=== PATIENT | female | born 1955 | race Caucasian/White ===

== ENCOUNTER 2024-02-22 02:11 | Inpatient (IN) | payer MEDICARE, OTHER, SELFPAY ==
[2024-02-22] VITALS (11 sets, daily range): BP systolic 72–124; BP diastolic 45–84; PULSE 93–114; RESP 15–22; TEMP 36.6–37.1; O2SAT 94–99; BMI 26.6
--- NOTE | 2024-02-22 02:29 | XR_ITS ---
Examination: CT brain head without contrast. 2-D sagittal coronal reconstructions Date and time of exam:February 22, 2024 0356 hours INDICATIONS: Onset altered mental status today CTDI: vol (mGy):45.70 DLP: (mGycm):1005 Technique: Multiple CT axial sections of the brain have been obtained, 5 mm slice thickness. Contrast has not been administered. 2-D sagittal, coronal reconstructions have been obtained Low dose protocols were performed. One or more of the following dose reduction techniques were used; automated exposure control, adjustment of the mA and/or KV according to patient size, use of iterative reconstruction technique. Findings: No significant ventricular enlargement. 4 mm hyperdense area in the left parietal lobe image 19 Small area of hemorrhage cannot be excluded No mass effect or midline shift Basal cisterns are not remarkable. Fourth ventricle is midline. Cranial vault intact. Impression: 4 mm hyperdense area left parietal lobe image 19, differential would include small area of hemorrhage versus calcification Recommend clinical observation and short-term follow-up CT brain scan
--- NOTE | 2024-02-22 02:29 | XR_ITS ---
Examination: AP chest single view Technique one AP portable semiupright chest single view Exam date and time: February 22, 2024 at 0311 hours Comparison July 24, 2022 INDICATIONS: Shortness of breath today. FINDINGS: Mild enlargement cardiac contour Mild vascular congestion. 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
[2024-02-22 02:45] LABS: Lactate (Lactic Acid) 2.1 mMol/L (0.4-2.0)
[2024-02-22 02:46] LABS: Basophils % (Auto) 0 % (0-2.5); Eosinophils # (Auto) 1.4 Thou/mm3 (0.0-0.5); Eosinophils % (Auto) 26 % (0-10); Hematocrit 33.9 % (36.0-46.0); Hemoglobin 11.2 g/dL (12.0-16.0); Immature Granulocytes % (Auto) 6 % (0-0); Immature Granulocytes Auto 0.35 Thou/mm3 (0.00-0.00); Lymphocytes # (Auto) 0.3 Thou/mm3 (1.0-4.8); Lymphocytes % (Auto) 5 % (10-50); Mean Corpuscular Hemoglobin 27.8 pg (25.0-35.0); Mean Corpuscular Volume 84 fL (80-100); Monocytes # (Auto) 0.2 Thou/mm3 (0.0-0.8); Monocytes % (Auto) 3 % (0-12); Neutrophils # (Auto) 3.3 Thou/mm3 (1.8-7.7); Neutrophils % (Auto) 60 % (37-80); Nucleated Red Blood Cell % 0 /100 WBC (0); Platelet Count 70 Thou/mm3 (140-440); RDW Standard Deviation 46.5 fL (36.4-46.3); Red Blood Count 4.03 Miln/mm3 (4.00-5.20); White Blood Count 5.5 Thou/mm3 (3.6-11.0)
[2024-02-22 03:05] LABS: Slide Review Platelets confirmed
[2024-02-22 03:08] LABS: B-Type Natriuretic Peptide 1713 pg/mL (0-100); D-Dimer > 3820 ng/mL (<600)
[2024-02-22 03:11] LABS: Sed Rate (ESR) 94 mm/hr (0-30)
[2024-02-22] MEDS: LORazepam 2 MG/ML VIAL 0.5 MG IVP (03:27)
--- NOTE | 2024-02-22 03:30 | EDNOTE_ITS ---
ED General RME/HPI General Chief complaint: General Adult/Misc Complain Stated complaint: LOW BLOOD PRESSURE Time Seen by Provider: 02/22/24 02:19 Arrival date/time: 02/22/24 02:11 RME / HPI RME / HPI narrative: This section includes all my notes and documentations, including HPI, PE, and ED course. Ross Escalera MD HPI: 68-year-old female here to be evaluated with hypotension from her correction. I talked to her POA son ([phone]) on the phone for history. Currently, patient can't give us any history because she only moans in pain. Patient was very independent and active until spring of this year. When she had open heart surgery to fix a valve in [place] or another state. The recovery has been extremely difficult. Currently, she resides at a local correction for rehabilitation. She is improving and able to walk with assistance. Hope is to come back home and live with her son. Normally, she is alert and fully oriented. She has a DNR status. But son wants everything done to find the cause and treatment of her symptoms (including using vasopressors if needed), other than chest compressions and intubation. ROS: Can't obtain from the patient due to current clinical condition. Physical Exam: General: Alert. She appears to be in pain because she is moaning. But she has trouble telling us the location of her pain. Eyes: Conjunctivae and lids clear. EOMI. PERRL. ENT: No nasal congestion. Neck: Supple. No JVD. Heart: RRR. Lungs: No respiratory distress. Moderately decreased air movement. No significant rhonchi, wheezing, rales. Abdomen: Soft with tenderness, difficult to localize. Normal bowel sounds. No distension. No rebound or guarding. Legs: No clubbing, cyanosis, edema. Skin: Warm and dry. Neuro: Alert. Cranial Nerves II-XII grossly intact. No peripheral motor deficits. Musculoskeletal: All major joints and bones are not tender with no limited ROM. I reviewed EMS notes. I reviewed all diagnostic test results. My interpretation of the EKG is sinus rhythm with RBBB or LBBB (no BBB in 11/2023). My interpretation of the chest x-ray is increased vascular congestion (official radiology reading pending). Official CT reports pending. Blood tests and urine tests remarkable for WBC 5.5, ESR 94, D-dimer > 3820, Cr 2.4, LA 2.1, Trop 12.022, CRP 32.9, BNP 1713, procalcitonin 19.16, TSH 19.01. At this point, diagnoses include acute OK. I discussed the case with our project control manager (Dr. Burciaga). About the presentation and exam and diagnostics and treatments here. And need of further care here. Recommended discussion with [facility] for possible urgent cardiac catheterization. I discussed the case with [facility] project control manager (Dr. Duarte). About the presentation and exam and diagnostics and treatments here. And need of further care there. Urgent catheterization not indicated (because cardiac catheterization earlier this year when she had her heart valve replaced didn't indicate intervention). I discussed the case with our project control manager (Dr. Burciaga) again and our hospitalist. About the presentation and exam and diagnostics and treatments here. And need of further care here. Will accept the patient. Ross Escalera MD Related Data Home Medications ?Medication ?Instructions ?Recorded ?Confirmed amiodarone 200 mg tablet 200 mg PO QDAY 01/11/24 01/11/24 apixaban 2.5 mg tablet 2.5 mg PO BID 01/11/24 01/11/24 ascorbic acid (vitamin C) 500 mg 500 mg PO BID 01/11/24 01/11/24 tablet (Vitamin C) aspirin 81 mg tablet,delayed 81 mg PO QDAY 01/11/24 01/11/24 release bisacodyl 10 mg rectal suppository 10 mg WI QDAY PRN Constipation 01/11/24 01/11/24 (Dulcolax (bisacodyl)) ipratropium 0.5 mg-albuterol 3 mg 3 ml inhalation Q4HR PRN sob 01/11/24 01/11/24 (2.5 mg base)/3 mL nebulization soln magnesium hydroxide 400 mg/5 mL 30 ml PO Q72H 01/11/24 01/11/24 oral suspension (Milk of Magnesia) melatonin 1 mg tablet 1 mg PO HS PRN Insomnia 01/11/24 01/11/24 ondansetron 4 mg disintegrating 4 mg PO Q6H PRN Nausea And Vomiting 01/11/24 01/11/24 tablet pantoprazole 40 mg tablet,delayed 40 mg PO QDAY 01/11/24 01/11/24 release (Protonix) sennosides 8.6 mg tablet (senna) 8.6 mg PO BID 01/11/24 01/11/24 tiotropium bromide 18 mcg capsule 1 cap inhalation QDAY 01/11/24 01/11/24 with inhalation device tramadol 50 mg tablet 50 mg PO Q6H PRN Pain 01/11/24 01/11/24 Allergies Allergy/AdvReac Type Severity Reaction Status Date / Time No Known Allergies Allergy Verified 12/20/23 07:53 Course Quality Measures none Orders Category Date Time Status Admit to Inpatient Status Routine Admission 02/22/24 05:57 Active Patient Condition Routine Admission 02/22/24 05:56 Ordered Bedside COVID-19 Antigen Test NOW Care 02/22/24 02:29 Active Bedside Influenza A&B Antigen Test NOW Care 02/22/24 02:29 Completed COVID-19 Screening Questionnaire NOW Care 02/22/24 05:[address] Screening NOW Care 02/22/24 02:29 Completed Comfort Measures NEEDED Care 02/22/24 05:57 Active Decision to Admit X1 Care 02/22/24 05:24 Active EKG (ED ONLY) *Do not use* NOW Care 02/22/24 02:29 Completed Notify provider NEEDED Care 02/22/24 05:56 Active Notify provider NOW Care 02/22/24 05:28 Active Oral Care As Needed NEEDED Care 02/22/24 05:57 Active Saline [Insert IV] NOW Care 02/22/24 02:28 Active Straight [In and Out Catheter] X1 Care 02/22/24 02:28 Active Consult to Cardiology Stat Cons 02/22/24 05:[address] abdomen pelvis w con Stat Exams 02/22/24 02:[address] angio chest Stat Exams 02/22/24 02:[address] chest abdomen pelvis wo Stat Exams 02/22/24 03:[address] head/brain wo con Stat Exams 02/22/24 02:29 Taken EKG (ED Only) Stat Exams 02/22/24 02:29 Stop Req XR chest 1V portable Stat Exams 02/22/24 02:29 Taken ABG [Arterial Blood Gas] Stat Lab 02/22/24 05:30 Ordered Amylase Stat Lab 02/22/24 02:36 Completed BNP [B-Type Natriuretic Peptide] Stat Lab 02/22/24 02:36 Completed Blood Culture (Lab) Stat Lab 02/22/24 02:41 Received CBC Stat Lab 02/22/24 02:36 Completed CMP [Comprehensive Metabolic Panel] Stat Lab 02/22/24 02:36 Completed CRP [C-Reactive Protein] Stat Lab 02/22/24 02:36 Completed D-Dimer Stat Lab 02/22/24 02:36 Completed ESR [Sed Rate (ESR)] Stat Lab 02/22/24 02:36 Completed Lactate (Lactic Acid) Stat Lab 02/22/24 02:36 Completed Lactic Acid, 3 HR Stat Lab 02/22/24 05:44 Ordered Lipase Stat Lab 02/22/24 02:36 Completed Magnesium Stat Lab 02/22/24 02:36 Completed PT [Prothrombin Time with INR] Stat Lab 02/22/24 05:26 Ordered PTT [Partial Thromboplastin Time] Stat Lab 02/22/24 05:26 Ordered Procalcitonin Stat Lab 02/22/24 02:36 Completed RSV [Respiratory Syncytial Virus Ag] Stat Lab 02/22/24 02:31 Ordered TSH [Thyroid Stimulating Hormone] Stat Lab 02/22/24 02:36 Completed Troponin I Stat Lab 02/22/24 02:36 Completed Troponin I Stat Lab 02/22/24 05:08 Completed UA [Urinalysis] Stat Lab 02/22/24 02:31 Ordered Urine Culture Stat Lab 02/22/24 02:31 Ordered Aspirin Supp Med 02/22/24 04:30 Discontinued 300 mg WI X1 ONE Heparin Inj Med 02/22/24 05:26 Discontinued 4,000 unit IV X1 ONE Heparin/D5w 25K 250 ML Ivpb [Heparin in D5w Ivpb] Med 02/22/24 05:30 Ordered 25,000 unit in 250 ml IV 12 units/kg/hr LORazepam [Ativan Inj] Med 02/22/24 03:22 Discontinued 0.5 mg IVP X1 ONE LORazepam [Ativan Inj] Med 02/22/24 05:57 Active 1 mg IVP Q6HR PRN Morphine IV Drip 100mg/100ml [Morphine Sulfate IV Drip Med 02/22/24 05:57 Active 100mg/100ml] 100 ml IV 3 mg/hr Morphine Inj Med 02/22/24 05:57 Active 2 mg IVP Q30M PRN Morphine Inj Med 02/22/24 05:57 Discontinued 2 mg IVP X1 ONE Morphine Inj Med 02/22/24 03:39 Discontinued 4 mg IVP X1 ONE Norepinephrine/NS 16mg/250ml [Levophed in NS 16mg/250ml Med 02/22/24 02:25 Discontinued ] 16 mg in 250 ml IV 0.05 mcg/kg/min Ondansetron Odt [Zofran Odt] Med 02/22/24 06:00 Ordered 4 mg PO Q6HR Scopolamine [Transderm-Scop Patch] Med 02/22/24 06:00 Ordered 1 mg TOP Q3D Code Status Routine Oth 02/22/24 05:56 Ordered Oxygen Delivery PRN RT 02/22/24 05:57 Active Vital Signs Vital signs: Vital Signs Temperature 98.0 F 02/22/24 02:24 Pulse Rate 96 02/22/24 02:24 Respiratory Rate 18 02/22/24 02:24 Blood Pressure 76/60 L 02/22/24 02:24 Pulse Oximetry (%) 96 02/22/24 02:24 Oxygen Delivery Method Nasal Cannula 02/22/24 02:24 Oxygen Flow Rate 3 02/22/24 02:24 [facility] Patient data External records reviewed:: [facility] previous records, EMS form and Long-Term records Clinical information provided by:: patient, EMS and family Social determinants that could affect healthcare access:: none Patient has the following chronic illnesses:: See chart How is presenting disease/condition affected by chronic disease/condition?: e xacerbated by Evaluation data The following diagnostics were reviewed and interpreted by me:: lab results, radiology exam(s) and EKG tracing(s) (My interpretation of the EKG is: Sinus tachycardia (107 bpm) with nonspecific ST-T changes. Ross Escalera MD) Lab and/or radiology exams considered but not ordered:: None Interpretation Summary: Acute OK Medications Medications considered but not ordered:: None Medication administrations:: Medication Administration History Heparin Sodium/Dextrose (Heparin In D5w Ivpb) 25,000 unit in 250 mls @ 8.709 mls/hr IV .Q24H [facility]; Protocol Stop: 03/07/24 05:29 Morphine Sulfate (Morphine Sulfate Iv Drip 100mg/100ml) 100 mls @ 3 mls/hr IV .Q24H PRN; Protocol PRN Reason: PAIN (COMFORT CARE) Stop: 02/27/24 05:56 Lorazepam (Lorazepam 2 Mg/Ml Vial) 1 mg IVP Q6HR PRN PRN Reason: ANXIETY Stop: 02/27/24 05:56 Morphine Sulfate (Morphine Sulf Inj 10 Mg/Ml Vial) 2 mg IVP Q30M PRN PRN Reason: PAIN Stop: 02/27/24 05:56 Ondansetron HCl (Ondansetron Odt 4 Mg Tabrap) 4 mg PO Q6HR [facility] Stop: 03/23/24 05:59 Scopolamine (Scopolamine 1 Mg Tdsy) 1 mg TOP Q3D VAIBHAV Stop: 03/23/24 05:59 Discontinued Medications Aspirin (Aspirin 300 Mg Supp) 300 mg WI X1 ONE Stop: 02/22/24 04:31 Last Admin: 02/22/24 04:36 Dose: 300 mg Documented By: KG Heparin Sodium (Porcine) (Heparin Sod Inj 5000 Unit/Ml Vial 10 Ml) 4,000 unit IV X1 ONE Stop: 02/22/24 05:27 Norepinephrine Bitartrate (Levophed In Ns 16mg/250ml) 16 mg in 250 mls @ 3.402 mls/hr IV .Q24H PRN; Protocol PRN Reason: PER protocol Stop: 03/23/24 02:24 Last Titration: 02/22/24 06:00 Dose: 0 mcg/kg/min, 0 mls/hr Documented By: Titration: 02/22/24 05:57 Dose: 0.13 mcg/kg/min, 8.845 mls/hr Documented By: Titration: 02/22/24 05:52 Dose: 0.15 mcg/kg/min, 10.206 mls/hr Documented By: Titration: 02/22/24 05:47 Dose: 0.17 mcg/kg/min, 11.567 mls/hr Documented By: Titration: 02/22/24 05:42 Dose: 0.19 mcg/kg/min, 12.927 mls/hr Documented By: Titration: 02/22/24 05:38 Dose: 0.17 mcg/kg/min, 11.567 mls/hr Documented By: Titration: 02/22/24 05:33 Dose: 0.15 mcg/kg/min, 10.206 mls/hr Documented By: Titration: 02/22/24 05:28 Dose: 0.13 mcg/kg/min, 8.845 mls/hr Documented By: Titration: 02/22/24 05:23 Dose: 0.11 mcg/kg/min, 7.484 mls/hr Documented By: Titration: 02/22/24 05:18 Dose: 0.11 mcg/kg/min, 7.484 mls/hr Documented By: Titration: 02/22/24 05:13 Dose: 0.11 mcg/kg/min, 7.484 mls/hr Documented By: Titration: 02/22/24 05:08 Dose: 0.13 mcg/kg/min, 8.845 mls/hr Documented By: Titration: 02/22/24 05:03 Dose: 0.13 mcg/kg/min, 8.845 mls/hr Documented By: Titration: 02/22/24 04:58 Dose: 0.13 mcg/kg/min, 8.845 mls/hr Documented By: Titration: 02/22/24 04:53 Dose: 0.13 mcg/kg/min, 8.845 mls/hr Documented By: Titration: 02/22/24 04:48 Dose: 0.13 mcg/kg/min, 8.845 mls/hr Documented By: Titration: 02/22/24 04:43 Dose: 0.11 mcg/kg/min, 7.484 mls/hr Documented By: Titration: 02/22/24 04:38 Dose: 0.11 mcg/kg/min, 7.484 mls/hr Documented By: Titration: 02/22/24 04:33 Dose: 0.11 mcg/kg/min, 7.484 mls/hr Documented By: Titration: 02/22/24 04:28 Dose: 0.09 mcg/kg/min, 6.124 mls/hr Documented By: Titration: 02/22/24 04:23 Dose: 0.07 mcg/kg/min, 4.763 mls/hr Documented By: Admin: 02/22/24 04:18 Dose: 0.05 mcg/kg/min, 3.402 mls/hr Documented By: KG Lorazepam (Lorazepam 2 Mg/Ml Vial) 0.5 mg IVP X1 ONE Stop: 02/22/24 03:23 Last Admin: 02/22/24 03:27 Dose: 0.5 mg Documented By: KG Morphine Sulfate (Morphine Sulf Inj 10 Mg/Ml Vial) 4 mg IVP X1 ONE Stop: 02/22/24 03:40 Last Admin: 02/22/24 04:18 Dose: 4 mg Documented By: KG Morphine Sulfate (Morphine Sulf Inj 10 Mg/Ml Vial) 2 mg IVP X1 ONE Stop: 02/22/24 05:58 See chart Consultations Consultation(s) initiated? (list below): Yes Consultation #1 (Physician, Specialty, Details): Cardiology (Dr. Burciaga) Diagnosis Differential Diagnosis ED Complaint MDM: OK, PE, CHF, UTI, pneumonia, sepsis, CVA Most likely diagnosis given after review of the tests above:: Acute OK Admission Indicated Admission indicated?: indicated Explain why admission is indicated or not indicated:: Acute OK Admission Request Was there a request for admission?: Yes Admission Attestation Admission request attestation: Discussed case with Hospitalist service regarding admission. Discussed patients ED course, exam findings, labs, and radiology results. The Hospitalist [agrees,declines] to accept the patient for admission. Disposition Plan Disposition Plan: Admit Medical Decision Making Differential Diagnosis Differential Diagnosis: OK, PE, CHF, UTI, pneumonia, sepsis, CVA Lab Data 02/22/24 02:36 02/22/24 02:36 Labs: Lab Results 02/22/24 02/22/24 Range/Units 02:36 05:08 WBC 5.5 (3.6-11.0) Thou/mm3 RBC 4.03 (4.00-5.20) Miln/mm3 Hgb 11.2 L (12.0-16.0) g/dL Hct 33.9 L (36.0-46.0) % MCV 84 (80-100) fL MCH 27.8 (25.0-35.0) pg MCHC 33.0 (31.0-37.0) g/dl RDW Std Deviation 46.5 H (36.4-46.3) fL Plt Count 70 L (140-440) Thou/mm3 Neut % (Auto) 60 (37-80) % Lymph % (Auto) 5 L (10-50) % Davie % (Auto) 3 (0-12) % Eos % (Auto) 26 H (0-10) % Baso % (Auto) 0 (0-2.5) % Neut # (Auto) 3.3 (1.8-7.7) Thou/mm3 Lymph # (Auto) 0.3 L (1.0-4.8) Thou/mm3 Davie # (Auto) 0.2 (0.0-0.8) Thou/mm3 Eos # (Auto) 1.4 H (0.0-0.5) Thou/mm3 Baso # (Auto) 0.0 (0.0-0.2) Thou/mm3 Immature Gran # (Auto) 0.35 H (0.00-0.00) Thou/mm3 Absolute Nucleated RBC 0.00 (0.00-0.00) Thou/mm3 Immature Gran % 6 H (0-0) % Nucleated RBC % 0 (0) /100 WBC ESR 94 H (0-30) mm/hr D-Dimer > 3820 H (<600) ng/mL Sodium 133 L (136-145) mMol/L Potassium 4.7 (3.4-5.1) mMol/L Chloride 102 (98-107) mMol/L Carbon Dioxide 19.8 L (20.0-31.0) mMol/L Anion Gap 11 (7-16) BUN 67 H (9-23) mg/dL Creatinine 2.4 H D (0.6-1.3) mg/dL Estim Creat Clear Calc 22.4 L (>60) mL/min eGFR 21 L (60 - ) See Note BUN/Creatinine Ratio 28 H (12-20) Ratio Glucose 111 H (74-106) mg/dL Calculated Osmolality 286 (275-295) Lactic Acid 2.1 H (0.4-2.0) mMol/L Calcium 8.6 (8.3-10.6) mg/dL Corrected Calcium 9.2 (8.5-10.1) mg/dL Magnesium 1.6 (1.6-2.6) mg/dL Total Bilirubin 0.6 (0.3-1.2) mg/dL AST 84 H (0-34) U/L ALT 49 (10-49) U/L Alkaline Phosphatase 114 (46-116) U/L Troponin I 12.022 H* 17.757 H* D (0.0-0.045) ng/mL C-Reactive Prot, Quant 32.9 H (0.0-0.9) mg/dL B-Natriuretic Peptide 1713 H* (0-100) pg/mL Total Protein 5.1 L (5.7-8.2) gm/dL Albumin 3.3 L (3.4-4.8) gm/dL Globulin 1.8 L (2.3-3.5) gm/dL Albumin/Globulin Ratio 1.8 (1.2-2.2) Amylase 25 L (30-118) U/L Lipase 16 (12-53) U/L Procalcitonin 19.16 H (0.0-0.49) ng/ml TSH 19.01 H (0.55-4.78) uIU/mL Misc Test Result Platelets confirmed Critical Care Time Critical Care Time Critical Care Time: Yes Total Critical Care Time (min.): 62 Attestation: Due to a high probability of clinically significant, life threatening deterioration, the patient required my highest level of preparedness to intervene emergently and I personally spent this critical care time directly and personally managing the patient. This critical care time included obtaining a history; examining the patient; ordering and review of studies; arranging urgent treatment with development of a management plan; evaluation of patient's response to treatment; frequent reassessment; and discussions with family and other providers. It was exclusive of separately billable procedures and treating other patients and teaching time. Ross Escalera MD Discharge Plan Plan Patient Disposition: Admit Acute Care w/in Hospital Prescriptions/Referrals Prescriptions/Med Rec: No Action amiodarone 200 mg Tablet 200 mg PO QDAY aspirin 81 mg Tablet,Delayed Release (Dr/Ec) 81 mg PO QDAY Hold Instructions: Resume on 01/14/24. bisacodyl [Dulcolax (bisacodyl)] 10 mg Suppository 10 mg WI QDAY PRN (Reason: Constipation) apixaban 2.5 mg Tablet 2.5 mg PO BID Hold Instructions: Resume on 01/14/24. sennosides [senna] 8.6 mg Tablet 8.6 mg PO BID ipratropium-albuterol 0.5 mg-3 mg(2.5 mg base)/3 mL Solution For Nebulization 3 ml INHALATION Q4HR PRN (Reason: sob) tramadol 50 mg Tablet 50 mg PO Q6H PRN (Reason: Pain) magnesium hydroxide [Milk of Magnesia] 400 mg/5 mL Suspension 30 ml PO Q72H ascorbic acid (vitamin C) [Vitamin C] 500 mg Tablet 500 mg PO BID pantoprazole [Protonix] 40 mg Tablet,Delayed Release (Dr/Ec) 40 mg PO QDAY ondansetron 4 mg Tablet,Disintegrating 4 mg PO Q6H PRN (Reason: Nausea And Vomiting) melatonin 1 mg Tablet 1 mg PO HS PRN (Reason: Insomnia) tiotropium bromide 18 mcg Capsule, W/Inhalation Device 1 cap INHALATION QDAY Rx Instructions: puncture 1 cap using device; one dose = 2 inhalations Referrals: Shun Thomson MD [Primary Care Provider] - In 1 week Problem List Clinical Impression: Acute OK, Hypotension, Elevated brain natriuretic peptide (BNP) level, Elevated d-dimer, Elevated TSH Patient/Caregiver Discharge Instructions Print Language: Russian Stand Alone Forms: [facility] Award Info., Patient Portal Info Letter
[2024-02-22 03:32] LABS: Alanine Aminotransferase 49 U/L (10-49); Albumin, Serum 3.3 gm/dL (3.4-4.8); Albumin/Globulin Ratio 1.8 (1.2-2.2); Alkaline Phosphatase 114 U/L (46-116); Amylase 25 U/L (30-118); Anion Gap 11 (7-16); Aspartate Amino Transferase 84 U/L (0-34); BUN/Creatinine Ratio 28 Ratio (12-20); Bilirubin,Total 0.6 mg/dL (0.3-1.2); Blood Urea Nitrogen 67 mg/dL (9-23); C-Reactive Protein 32.9 mg/dL (0.0-0.9); Calcium 8.6 mg/dL (8.3-10.6); Calcium (Corrected) 9.2 mg/dL (8.5-10.1); Carbon Dioxide 19.8 mMol/L (20.0-31.0); Chloride 102 mMol/L (98-107); Creatinine (Component) 2.4 mg/dL (0.6-1.3); Estimated Creatinine Clearance 22.4 mL/min (>60); Globulin 1.8 gm/dL (2.3-3.5); Glucose 111 mg/dL (74-106); Lipase 16 U/L (12-53); Magnesium 1.6 mg/dL (1.6-2.6); Osmolality,Calculated 286 (275-295); Potassium 4.7 mMol/L (3.4-5.1); Procalcitonin 19.16 ng/ml (0.0-0.49); Sodium 133 mMol/L (136-145); Thyroid Stimulating Hormone 19.01 uIU/mL (0.55-4.78); Total Protein 5.1 gm/dL (5.7-8.2); eGFR 21 See Note
[2024-02-22 03:35] LABS: Troponin I 12.022 ng/mL (0.0-0.045)
--- NOTE | 2024-02-22 03:38 | PC.NURSE ---
Ki from lab called with a high troponin of 12.0, Dr. Escalera notified
--- NOTE | 2024-02-22 03:43 | XR_ITS ---
Examination: CT chest, without intravenous contrast. CT abdomen, without intravenous contrast. CT pelvis, without intravenous contrast. 2-D sagittal and coronal reconstructions. 3-D reconstructions. Date and time of exam:February 22, 2024 at 0358 hrs. Indications: Hypertension shortness of breath chest and abdominal pain today CTDI vol (mgy) 16.41 DLP (MGycm)1159 Technique: Multiple CT images, 3.0 mm slice thickness, obtained chest, abdomen, pelvis, with the high-resolution 64 slice scanner.. Sagittal and coronal 2-D reconstructions are obtained. 3-D reconstructions Low dose protocols were performed. One or more of the following dose reduction techniques were used; automated exposure control, adjustment of the mA and/or KV according to patient size, use of iterative reconstruction technique. Findings: No thoracic aortic aneurysm dilatation Pulmonary artery segments are not enlarged No paratracheal tracheobronchial or bronchopulmonary adenopathy Mild enlargement cardiac contour Moderate vascular congestion with pneumonia left base and small left pleural effusion Mild pneumonia right base and small pleural effusion No focal liver or splenic lesions Patient motion obscures detail of the gallbladder No hydronephrosis No pancreatic mass Aorta normal size Colonic diverticulosis Atrophic uterus Moderate stool in the rectum Urinary bladder contracted around a Ascencio catheter Advanced disc narrowing L5-S1 Impression: Bibasilar pneumonia Gallbladder visualization is nondiagnostic, recommend gallbladder sonography follow-up
--- NOTE | 2024-02-22 04:00 | PC.NURSE ---
Pt is more lethargic and less responsive than she was at time of arrival, provider informed.
[2024-02-22] MEDS: Norepinephrine/NS 16mg/250ml 16 MG/250 ML BAG 3.402 MG IV (04:18)
[2024-02-22] MEDS: MORPHINE SULF INJ 10 MG/ML VIAL 4 MG IVP (04:18)
[2024-02-22] MEDS: ASPIRIN 300 MG SUPP PR (04:36)
--- NOTE | 2024-02-22 04:57 | PRELIM_ITS ---
CT scan of the head without intravenous contrast (axial sections with sagittal and coronal reformats) February 22, 2024 0356 hours Clinical history: AMS Comparison: No prior study is available for sha will. Findings:There is no evidence of intracranial hemorrhage, mass effect or midline shift. There are periventricular white matter hypodensities, compatible with chronic small vessel ischemia. There is mild volume loss. The calvarium is unremarkable. There is a small retention cyst or polyp in the l eft maxillary sinus. The mastoid air cells and the visualized paranasal sinuses are clear.Impression: No evidence of intracranial hemorrhage, mass effect or midline shift.Periventricular chronic small ve ssel ischemia and volume loss. Report Electronically Signed By: Kathy Nieto 02/22/2024 4:56:32 AM [ES T]
--- NOTE | 2024-02-22 05:04 | PC.NURSE ---
[id number] [facility] contacted pt pkt sent. [phone] SR KI, SPEAKING WITH [facility] PT DECLINED AT THIS TIME.
[2024-02-22 05:31] LABS: Troponin I 17.757 ng/mL (0.0-0.045)
--- NOTE | 2024-02-22 05:32 | PRELIM_ITS ---
CT scan of the chest, abdomen and pelvis without intravenous contrast (axial sections with sagittal a nd coronal reformats) February 22, 2024 0358 hours Clinical History: AMS HYPOTENSION SOB ABD PAIN Com parison: No prior study is available for comparison. Findings: Bibasilar atelectasis is seen. There i s mild cardiomegaly. There is no pleural effusion or pneumothorax. The aorta is unremarkable on this noncontrast study. No evidence of mediastinal mass or lymphadenopathy. There is no pericardial effus ion.A large hiatal hernia is present. Nonspecific perinephric fat stranding is noted bilaterally. Th ere is a nonobstructing left renal calculus, measuring 2mm. The liver, gallbladder, spleen, pancreas and adrenals are unremarkable on this noncontrast study.No evidence of bowel obstruction. The append ix is within normal limits (axial images 198-204). A small fat-containing umbilical hernia is present . The urinary bladder is unremarkable. A Ascencio catheter is seen in the urinary bladder. There is no f ree fluid or free air.Median sternotomy wires are identified. Degenerative changes are identified in the spine. Impression:No evidence of acute intrathoracic, intraabdominal or pelvic pathology on this noncontrast study. Report Electronically Signed By: Kathy Nieto 02/22/2024 5:31:55 AM [EST]
--- NOTE | 2024-02-22 05:42 | PC.NURSE ---
Dr. Stewart at the bedside, speaking on phone with pt's son Darnell.
[2024-02-22 05:44] LABS: Reflex Lactate? Y
--- NOTE | 2024-02-22 05:45 | PC.NURSE ---
Pt's son Darnell would like pt to be on comfort measures, he confirmed this with both myself and Dr. Paul via phone. Dr. Stewart to place orders.
--- NOTE | 2024-02-22 06:00 | ESHP_ITS ---
Documentation for date of: 02/22/24 HPI History of Present Illness History of present illness: 68-year-old female with an extensive past medical history of atrial fibrillation with RVR, COPD, GERD history of infective endocarditis with unknown valve replacement x 2. Patient presented today to the emergency department due to body aches including chest pain. I cannot get much history after that based on the patient's current mental status. Her last valve replacement on July 2023 in [place]. Patient spent several weeks in the cardiac ICU due to multiple organ failure even requiring dialysis. Eventually the patient was transferred to [place] for rehab center and lastly upon son's request the patient was transferred to a chcf facility here in [facility]. Most of the history provided was given by the son Darnell. Also patient was here yesterday with symptoms of bodyaches and had a evidence of ERIC. Patient was sent home with analgesia and hydration. At that time the patient signed a DNR in which she did not want any aggressive management stating to her son that she did not want any chest compressions or a endotracheal tube or any aggressive procedures done to her. In the ED patient is hypotensive with a last blood pressure of 73/45 with a MAP of 49 requiring Levophed. Patient mentation is not at baseline she is AO x 3, patient is very somnolent only responsive to painful stimuli. I called patient's son Mr. Patrick. I had a conversation regarding possible transferring the patient to [facility] however [facility] declined at that time for the transfer. Patient's son was explained her mother's condition requiring pressors and possibly the need of a cardiac catheterization. Based on the conversation that she had with her son. The patient did not want any aggressive management treatments or procedures. The son is aware of the patient's critical and poor prognosis. Several options were provided to the patient's son. Based on patient's extensive past medical history and current status of DNR the son agreed for comfort measures at this time to keep her mom comfortable with no additional procedures or treatments. Nurse at bedside was witnessed to discomfort sedation and spoke with the son as well confirming that he would like her mother to be on comfort measures. Review of Systems Review of Systems ROS Unobtainable: unobtainable due to mental status Exam Vital Signs Temp Pulse Resp BP Pulse Ox O2 Del Method O2 Flow Rate 98.0 F 93 20 73/45 L 99 Nasal Cannula 3 02/22/24 02:24 02/22/24 04:18 02/22/24 03:28 02/22/24 04:18 02/22/24 03:28 02/22/24 03:28 02/22/24 03:28 Narrative Exam Constitutional: Alert and oriented x 0, arousable only to painful stimuli, very somnolent HEENT: NC/AT, PERRLA, oral mucosa moist, neck supple CVS: RRR, S1-S2 present, no murmurs RESP: CTAB GI: non distended, non tender to palpation, NBS MSK: full ROM, no peripheral edema, peripheral pulses present Skin: warm and dry, no rashes Neuro: chair post machine operator II-XII grossly intact. Results: Labs 02/22/24 02:36 02/22/24 02:36 Labs: Short CBC 02/22/24 Range/Units 02:36 WBC 5.5 (3.6-11.0) Thou/mm3 Hgb 11.2 L (12.0-16.0) g/dL Hct 33.9 L (36.0-46.0) % Plt Count 70 L (140-440) Thou/mm3 BMP 02/22/24 02:36 Sodium 133 L Potassium 4.7 Chloride 102 Carbon Dioxide 19.8 L BUN 67 H Creatinine 2.4 H D Glucose 111 H Calcium 8.6 Cardiac Enzymes 02/22/24 02/22/24 Range/Units 02:36 05:08 Troponin I 12.022 H* 17.757 H* D (0.0-0.045) ng/mL Liver Function 02/22/24 Range/Units 02:36 Total Bilirubin 0.6 (0.3-1.2) mg/dL AST 84 H (0-34) U/L ALT 49 (10-49) U/L Alkaline Phosphatase 114 (46-116) U/L Albumin 3.3 L (3.4-4.8) gm/dL Quality Measures Quality Measures comfort care/end of life Advance care planning discussed with:: patient and significant other Medications Home Medications and Allergies Home Medications ?Medication ?Instructions ?Recorded ?Confirmed ?Type amiodarone 200 mg tablet 200 mg PO QDAY 01/11/24 01/11/24 History apixaban 2.5 mg tablet 2.5 mg PO BID 01/11/24 01/11/24 History ascorbic acid (vitamin C) 500 mg 500 mg PO BID 01/11/24 01/11/24 History tablet (Vitamin C) aspirin 81 mg tablet,delayed 81 mg PO QDAY 01/11/24 01/11/24 History release bisacodyl 10 mg rectal suppository 10 mg ID QDAY PRN Constipation 01/11/24 01/11/24 History (Dulcolax (bisacodyl)) ipratropium 0.5 mg-albuterol 3 mg 3 ml inhalation Q4HR PRN sob 01/11/24 01/11/24 History (2.5 mg base)/3 mL nebulization soln magnesium hydroxide 400 mg/5 mL 30 ml PO Q72H 01/11/24 01/11/24 History oral suspension (Milk of Magnesia) melatonin 1 mg tablet 1 mg PO HS PRN Insomnia 01/11/24 01/11/24 History ondansetron 4 mg disintegrating 4 mg PO Q6H PRN Nausea And Vomiting 01/11/24 01/11/24 History tablet pantoprazole 40 mg tablet,delayed 40 mg PO QDAY 01/11/24 01/11/24 History release (Protonix) sennosides 8.6 mg tablet (senna) 8.6 mg PO BID 01/11/24 01/11/24 History tiotropium bromide 18 mcg capsule 1 cap inhalation QDAY 01/11/24 01/11/24 History with inhalation device tramadol 50 mg tablet 50 mg PO Q6H PRN Pain 01/11/24 01/11/24 History Allergies Allergy/AdvReac Type Severity Reaction Status Date / Time No Known Allergies Allergy Verified 12/20/23 07:53 Visit Medications Heparin Sodium/Dextrose (Heparin In D5w Ivpb) 25,000 unit in 250 mls @ 8.709 mls/hr IV .Q24H VAIBHAV; Protocol Stop: 03/07/24 05:29 Morphine Sulfate (Morphine Sulfate Iv Drip 100mg/100ml) 100 mls @ 3 mls/hr IV .Q24H PRN; Protocol PRN Reason: PAIN (COMFORT CARE) Stop: 02/27/24 05:56 Lorazepam (Lorazepam 2 Mg/Ml Vial) 1 mg IVP Q6HR PRN PRN Reason: ANXIETY Stop: 02/27/24 05:56 Morphine Sulfate (Morphine Sulf Inj 10 Mg/Ml Vial) 2 mg IVP Q30M PRN PRN Reason: PAIN Stop: 02/27/24 05:56 Ondansetron HCl (Ondansetron Odt 4 Mg Tabrap) 4 mg PO Q6HR VAIBHAV Stop: 03/23/24 05:59 Scopolamine (Scopolamine 1 Mg Tdsy) 1 mg TOP Q3D VAIBHAV Stop: 03/23/24 05:59 Discontinued Medications Aspirin (Aspirin 300 Mg Supp) 300 mg ID X1 ONE Stop: 02/22/24 04:31 Last Admin: 02/22/24 04:36 Dose: 300 mg Heparin Sodium (Porcine) (Heparin Sod Inj 5000 Unit/Ml Vial 10 Ml) 4,000 unit IV X1 ONE Stop: 02/22/24 05:27 Norepinephrine Bitartrate (Levophed In Ns 16mg/250ml) 16 mg in 250 mls @ 3.402 mls/hr IV .Q24H PRN; Protocol PRN Reason: PER protocol Stop: 03/23/24 02:24 Last Titration: 02/22/24 05:57 Dose: 0.13 mcg/kg/min, 8.845 mls/hr Lorazepam (Lorazepam 2 Mg/Ml Vial) 0.5 mg IVP X1 ONE Stop: 02/22/24 03:23 Last Admin: 02/22/24 03:27 Dose: 0.5 mg Morphine Sulfate (Morphine Sulf Inj 10 Mg/Ml Vial) 4 mg IVP X1 ONE Stop: 02/22/24 03:40 Last Admin: 02/22/24 04:18 Dose: 4 mg Morphine Sulfate (Morphine Sulf Inj 10 Mg/Ml Vial) 2 mg IVP X1 ONE Stop: 02/22/24 05:58 Assessment & Plan Plan Assessment: #Comfort measures #Possible myocardial infarction #Shock-likely cardiogenic #Elevated troponin #Acute kidney injury #Lactic acidosis #HFrEF #Type 2 diabetes #History infective endocarditis status post valve replacement x 2 Patient presented due to full body pain including chest pain to the ED. Her mentation at that time was AAO x 1 to self. Initial troponin was 13 currently up trended to 17. The ED physician try to transfer the patient to [facility], however, they declined the transfer. Our asset management coordinator was consulted and recommended admission. Patient had open heart surgery 2022 for a infective endocarditis valve the valve was repaired however a year later it became infected again and was repaired in July 2023 in [place]. The patient spent several months in the critical care unit due to multiorgan failure which the patient required dialysis for several weeks. Ultimately the patient was transferred to rehab center in [place] and lastly the patient was transferred back where her sons lives here in [place]. Patient was previously in our ER a day ago which she sign a DNR stating that she does not want any aggressive procedures she does not want chest compressions or intubation. I spoke and verified this information with the patient's son which he agrees and understands. He would like her mother to be comfortable and understand the implication of comfort measures and he would like us to continue in efforts to make her mother comfortable. Plan: -Family agreed for comfort measures -Comfort measures protocol -Morphine drip -Morphine as needed -Ativan as needed - Patient's care was discussed with my attending physician, Dr. Robby Paul MD Internal Medicine PGY-3 Attending Provider Attestation/Addendum I reviewed labs, imaging, EKG, home medications and prior available records. Face to face evaluation was performed by me. I have personally examined the patient and discussed assessment and plan with the IM team. I reviewed the resident note and agree with the plan with exceptions as below. 68-year-old female with history of endocarditis status post valve replacement, heart failure with reduced ejection fraction, who presented with a chief complaint of pain and hypotension. She was found to have cardiogenic shock in the setting of acute HI. Cardiogenic shock in the setting of acute HI: Requiring vasopressors. She is in severe pain. Troponin is uptrending. [facility] declined transfer given her comorbidities. Patient is DNR/DNI. Discussed goals of care with the family. Agreed on comfort measures and transition to comfort care only. Started the patient on morphine drip. Will stop vasopressors. fabric worker foreman to follow for hospice referral. Will admit to [facility].
--- NOTE | 2024-02-22 06:03 | PC.NURSE ---
Dr. Bustamante at the bedside.
--- NOTE | 2024-02-22 06:25 | PC.NURSE ---
Pt's son Darnell is at the bedside.
[2024-02-22] MEDS: MORPHINE SULF INJ 10 MG/ML VIAL 2 MG IVP (06:30)
--- NOTE | 2024-02-22 06:40 | PC.NURSE ---
Called pharmacy to request morphine drip - no answer at this time. Will keep trying.
[2024-02-22] MEDS: SCOPOLAMINE 1 MG TDSY TOP (07:49)
--- NOTE | 2024-02-22 08:04 | PC.NURSE ---
Unable to obtain full set of v/s, as patient is on comfort care. Pulse ox not reading, oral temp not reading. Pt mouth breathing.
--- NOTE | 2024-02-22 09:38 | CHAP ---
Spent time talking with son giving comfort. Had a prayer with them. Patient was unconscious.
--- NOTE | 2024-02-22 09:56 | PC.NURSE ---
Patient appears comfortable at this time NAD noted.
--- NOTE | 2024-02-22 10:20 | PC.NURSE ---
Family at bedside visiting with pt.
--- NOTE | 2024-02-22 10:24 | PD.RESCONSUL ---
HPI Data of Consult Patient: new to practice Consult date: 02/22/24 Requesting Physician: Geo Anguiano DO Admitting Provider: Alexander Bustamante MD Attending Provider: Geo Anguiano DO Primary Care Provider: Shun Thomson MD Consult Narrative Reason for consult: NSTEMI History of present illness: HISTORY OF PRESENT ILLNESS : Patient is currently nonverbal and majority of history taken from chart review and her Son, Darnell at bedside. Patient is a 68-year-old female with a past medical history significant for A-fib with RVR, COPD, old stroke, aortic stenosis s/p valve replacement 2 years ago and has a history of infective endocarditis with replacement of valve earlier this year in [place]. Patient presented to the ED today due to body aches and chest pain. According to patient's son she was in a SNF, [facility], for the past 3 months and this morning he was informed by staff that she was feeling weak and became confused. Upon arrival to the ED patient was A&O x 0 and unable to provide any further history. Patient had a history of CVA 2 years ago with no residual deficits. She also had aortic valve replacement in [place] approximately 1.5 years ago. Patient's son reported that she had a abnormal valve sensitive. Earlier this year patient developed infective endocarditis and was treated at the hospital 1 time only she had a large replacement. According to the son she had multiorgan failure and was in the ICU for 3 months. She was recently discharged and recovering at [facility]. ED course: BP 73/45 with MAP of 49 requiring noradrenaline. Patient was counseled on his mother's condition and need for possible transfer to to [facility]. Patient's transfer was denied. The different treatment options including possible heart catheterization were offered to the patient's family who opted for comfort measures. Cardiology was consulted for elevated troponin. HOME MEDICATIONS: ? Amiodarone 200 Mg p.o. daily ? Apixaban 2.5 Mg p.o. twice daily ? Plan 81 Mg p.o. daily ? Ipratropium/albuterol inhaler ? Milk of magnesia ? Melatonin ? Ondansetron ? Pantoprazole ? Acute stroke cc:: cc: Geo Anguiano DO Review of Systems Review of Systems ROS Unobtainable: unobtainable due to mental status Past Medical History Past Medical History Comments H COMMENT: Past medical history: ? A-fib ? COPD ? History of stroke ? Aortic stenosis s/p valve replacement ? 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 Elderly female in moderate distress Respiratory Chest normal on inspection and coarse ronchi auscultated throughout b/l lung guillaume Cardiovascular S1 and S2 audible, RRR. No murmurs carotid bruit. No gross JVD. Abdominal Soft. BS + Genitourinary No bladder tenderness, no flank pain. Normal to palpation Musculoskeletal Extremities tone within normal limits. No LE edema. Results Labs 02/22/24 02:36 02/22/24 02:36 Labs: Short CBC 02/22/24 Range/Units 02:36 WBC 5.5 (3.6-11.0) Thou/mm3 Hgb 11.2 L (12.0-16.0) g/dL Hct 33.9 L (36.0-46.0) % Plt Count 70 L (140-440) Thou/mm3 BMP 02/22/24 02:36 Sodium 133 L Potassium 4.7 Chloride 102 Carbon Dioxide 19.8 L BUN 67 H Creatinine 2.4 H D Glucose 111 H Calcium 8.6 Cardiac Enzymes 02/22/24 02/22/24 Range/Units 02:36 05:08 Troponin I 12.022 H* 17.757 H* D (0.0-0.045) ng/mL Liver Function 02/22/24 Range/Units 02:36 Total Bilirubin 0.6 (0.3-1.2) mg/dL AST 84 H (0-34) U/L ALT 49 (10-49) U/L Alkaline Phosphatase 114 (46-116) U/L Albumin 3.3 L (3.4-4.8) gm/dL Quality Measures Quality Measures comfort care/end of life Advance care planning discussed with:: child Medications Home Medications and Allergies Home Medications ?Medication ?Instructions ?Recorded ?Confirmed ?Type amiodarone 200 mg tablet 200 mg PO QDAY 01/11/24 01/11/24 History apixaban 2.5 mg tablet 2.5 mg PO BID 01/11/24 01/11/24 History ascorbic acid (vitamin C) 500 mg 500 mg PO BID 01/11/24 01/11/24 History tablet (Vitamin C) aspirin 81 mg tablet,delayed 81 mg PO QDAY 01/11/24 01/11/24 History release bisacodyl 10 mg rectal suppository 10 mg UT QDAY PRN Constipation 01/11/24 01/11/24 History (Dulcolax (bisacodyl)) ipratropium 0.5 mg-albuterol 3 mg 3 ml inhalation Q4HR PRN sob 01/11/24 01/11/24 History (2.5 mg base)/3 mL nebulization soln magnesium hydroxide 400 mg/5 mL 30 ml PO Q72H 01/11/24 01/11/24 History oral suspension (Milk of Magnesia) melatonin 1 mg tablet 1 mg PO HS PRN Insomnia 01/11/24 01/11/24 History ondansetron 4 mg disintegrating 4 mg PO Q6H PRN Nausea And Vomiting 01/11/24 01/11/24 History tablet pantoprazole 40 mg tablet,delayed 40 mg PO QDAY 01/11/24 01/11/24 History release (Protonix) sennosides 8.6 mg tablet (senna) 8.6 mg PO BID 01/11/24 01/11/24 History tiotropium bromide 18 mcg capsule 1 cap inhalation QDAY 01/11/24 01/11/24 History with inhalation device tramadol 50 mg tablet 50 mg PO Q6H PRN Pain 01/11/24 01/11/24 History Allergies Allergy/AdvReac Type Severity Reaction Status Date / Time No Known Allergies Allergy Verified 12/20/23 07:53 Visit Medications Morphine Sulfate (Morphine Sulfate Iv Drip 100mg/100ml) 100 mls @ 3 mls/hr IV .Q24H PRN; Protocol PRN Reason: PAIN (COMFORT CARE) Stop: 02/27/24 05:56 Lorazepam (Lorazepam 2 Mg/Ml Vial) 1 mg IVP Q6HR PRN PRN Reason: ANXIETY Stop: 02/27/24 05:56 Morphine Sulfate (Morphine Sulf Inj 10 Mg/Ml Vial) 2 mg IVP Q30M PRN PRN Reason: PAIN Stop: 02/27/24 05:56 Last Admin: 02/22/24 06:30 Dose: 2 mg Ondansetron HCl (Ondansetron Odt 4 Mg Tabrap) 4 mg PO Q6HR VAIBHAV Stop: 03/23/24 05:59 Last Admin: 02/22/24 07:48 Dose: Not Given Scopolamine (Scopolamine 1 Mg Tdsy) 1 mg TOP Q3D VAIBHAV Stop: 03/23/24 05:59 Last Admin: 02/22/24 07:49 Dose: 1 mg Discontinued Medications Aspirin (Aspirin 300 Mg Supp) 300 mg UT X1 ONE Stop: 02/22/24 04:31 Last Admin: 02/22/24 04:36 Dose: 300 mg Heparin Sodium (Porcine) (Heparin Sod Inj 5000 Unit/Ml Vial 10 Ml) 4,000 unit IV X1 ONE Stop: 02/22/24 05:27 Last Admin: 02/22/24 06:40 Dose: Not Given Norepinephrine Bitartrate (Levophed In Ns 16mg/250ml) 16 mg in 250 mls @ 3.402 mls/hr IV .Q24H PRN; Protocol PRN Reason: PER protocol Stop: 03/23/24 02:24 Last Titration: 02/22/24 06:00 Dose: 0 mcg/kg/min, 0 mls/hr Heparin Sodium/Dextrose (Heparin In D5w Ivpb) 25,000 unit in 250 mls @ 8.709 mls/hr IV .Q24H VAIBHAV; Protocol Stop: 03/07/24 05:29 Last Admin: 02/22/24 06:40 Dose: Not Given Lorazepam (Lorazepam 2 Mg/Ml Vial) 0.5 mg IVP X1 ONE Stop: 02/22/24 03:23 Last Admin: 02/22/24 03:27 Dose: 0.5 mg Morphine Sulfate (Morphine Sulf Inj 10 Mg/Ml Vial) 4 mg IVP X1 ONE Stop: 02/22/24 03:40 Last Admin: 02/22/24 04:18 Dose: 4 mg Morphine Sulfate (Morphine Sulf Inj 10 Mg/Ml Vial) 2 mg IVP X1 ONE Stop: 02/22/24 05:58 Assessment & Plan Plan Patient is currently nonverbal and majority of history taken from chart review and her Son, Darnell at bedside. Patient is a 68-year-old female with a past medical history significant for A-fib with RVR, COPD, old stroke, aortic stenosis s/p valve replacement 2 years ago and has a history of infective endocarditis with replacement of valve earlier this year in [facility]. Patient presented to the ED today due to body aches and chest pain. Cardiology was consulted for elevated troponin. 1. ACS 2. NSTEMI type I versus 2 Patient had chest pain and bodyaches prior to admission EKG on this admission showed ectopic atrial rhythm,. HR 93, RBBB but no acute ST changes. Troponin initially elevated at 12.02 up from just trended to 17.75 Plan: ? Patient is comfort measures. No aggressive treatment 3. Aortic stenosis s/p aortic valvve replacement 2021 & 2023 4. A-fib with RVR?paroxysmal 5. COPD 6. History of stroke 7. NIDDM type 2 8. Cardiogenic shock Patient had chest pain and bodyaches prior to admission EKG on this admission showed ectopic atrial rhythm,. HR 93, RBBB but no acute ST changes. Patient on amiodarone 200 Mg p.o. daily, apixaban 2.5 Mg p.o. twice daily as home medication. Troponin initially elevated at 12.02 up from just trended to 17.75 Plan: ? Patient son wanted comfort measures and no procedures . No aggressive treatment Continue rest of management as per primary team. We are grateful to be able to participate in Ms. Low' care. Thank you for the consult Plan of care discussed with attending Freelance Court Reporter, Dr Gualberto Kapadia MD PGY 1 Attending Provider Attestation/Addendum I have personally seen and examined the patient separately on the above date of service and discussed the plan of care with the resident. I reviewed the resident Dr. Kapadia consultation progress note and agree with the resident findings and plan in the note above and have also edited the documentation to reflect my findings and plan. Patient is unable to provide much history and as per the chart review. A 62-year-old female with a past medical history of aortic stenosis status post valve replacement 2 years ago and history of infective endocarditis with surgical replacement of aortic valve again in [place] earlier in 2023, history of paroxysmal atrial fibrillation with RVR on anticoagulation, previous CVA, COPD, CHF, history of acute kidney failure, duodenal ulcer, major depression, pleural effusions, sacral pressure ulcer, malnutrition, history of acute respiratory failure with hypoxia in the past, GERD, iron deficiency, myopathy, polyneuropathy and was DNR presented to the emergency department for for chest pain as well as some bodyaches. Patient was never admitted here but had an ER visit in November 2023. As per the patient son, she has not been doing well since the second surgery for the aortic valve replacement for endocarditis and has been in the rehab since then. She has been in the [facility] rehab for the last 3 months after a prolonged hospitalization with an ICU stay of almost 3 months after the valve replacement with multiorgan failure.. Since then patient has not been doing well. ED doctor called me learning disabilities resource teacher around 3:30 AM concerned for elevated troponin at 12 and chest pain with hypertension at 70/45 mmHg and a MAP of 49 and patient was started on Levophed. Patient unable to give much history. EKG showed new right bundle branch block and no acute ST-T changes suggestive for STEMI but given her symptoms along with elevated troponins recommended to transfer to [facility]. Emergency Dr. Tolbert speak to the cardiology photostat operator who recommended no urgent transfer the patient and consulted treatment for now as there is no possible acute coronary syndrome given that she had a possible cardiac cath recently before the repeat surgery and the EKG is not indicated. I recommended patient to be admitted here for further evaluation and also recommended to talk to the family her son regarding the goals of care in the meantime. Patient eventually was seen by the resident team and ICU team in house and did speak to the family who did inform that the patient was DNR and he did not want any aggressive measures or procedures as she has not been doing well for the last year with all the long hospitalizations multiorgan failure she had an EF last few months including a sacral pressure ulcer with altered mental status last few months. Decision was made to transition her to comfort care as per the son's wishes and primary team started the patient on morphine drip. Management of rest of the medical conditions as per primary team and other consultants. Thank you for the consult and allowing me to participate in the care of the patient. Cardiology will continue to follow. Chris Burciaga M.D. Interventional Cardiology
--- NOTE | 2024-02-22 11:30 | PC.NURSE ---
Patient resting comfortably. Son at bedside denies any distress at this time.
[2024-02-22 12:20] LABS: Collection Type, Urine Clean Catch
[2024-02-22 12:30] LABS: Amorphous Crystals,Urine Present (Absent); Bacteria,Urine 4+; Bilirubin,Urine Negative (Negative); Blood,Urine 3+ (Negative); Color,Urine Orange (Lt Yel-Yel); Glucose, Urine Negative (Negative); Ketones,Urine Trace (Negative); Leukocyte Esterase,Urine Positive (Negative); Nitrite,Urine Negative (Negative); PH,Urine 6.5 (5.0-7.0); Protein,Urine 2+ (Neg - Trace); RBC,Urine 1185 /hpf (0-3); Specific Gravity,Urine 1.023 (1.001-1.035); Squamous Epithelial Cell,Urine 6 /hpf (0-5); Transitional Epi Cells,Urine 8 /hpf (0-5); WBC,Urine 817 /hpf (0-5)
[2024-02-22 12:37] LABS: Clarity,Urine Cloudy (Clear/Hazy)
--- NOTE | 2024-02-22 15:35 | PC.NURSE ---
Patient arrived to unit from ER via rney at 1402 with a GCS of 7. Nando Patrick is at bed side. Charge nurse AMY Henson and this RN started patient on Morphine INJ IV. Patient was made comfortable in bed.
--- NOTE | 2024-02-22 17:15 | PD.RESPRO ---
Documentation for date of: 02/22/24 Subjective Subjective Interval history: Patient was seen and examined at bedside. Patient's prognosis and underlying comorbidities discussed at length with son, Isaiah who was present. Unable to arouse patient and eyes paritally closed. Continue with comfort care measures, patient on morphine drip. Review of systems otherwise negative except what is mentioned above. Exam Vital Signs Temp Pulse Resp BP Pulse Ox O2 Del Method O2 Flow Rate 97.9 F 112 H 22 H 88/56 L 94 L Nasal Cannula 2 02/22/24 16:00 02/22/24 16:00 02/22/24 16:00 02/22/24 16:00 02/22/24 16:00 02/22/24 16:00 02/22/24 16:00 Narrative Exam Constitutional: Alert and oriented x 0, arousable only to painful stimuli, very somnolent HEENT: NC/AT, PERRLA, oral mucosa moist, neck supple CVS: RRR, S1-S2 present, no murmurs RESP: CTAB GI: non distended, non tender to palpation, NBS MSK: full ROM, no peripheral edema, peripheral pulses present Skin: warm and dry, no rashes Neuro: licensed appraiser II-XII grossly intact. Objective Labs 02/22/24 02:36 02/22/24 02:36 Labs: Laboratory Results - last 24 hr 02/22/24 02/22/24 02/22/24 02:36 05:08 12:04 WBC 5.5 RBC 4.03 Hgb 11.2 L Hct 33.9 L MCV 84 MCH 27.8 MCHC 33.0 RDW Std Deviation 46.5 H Plt Count 70 L Neut % (Auto) 60 Lymph % (Auto) 5 L Swisher % (Auto) 3 Eos % (Auto) 26 H Baso % (Auto) 0 Neut # (Auto) 3.3 Lymph # (Auto) 0.3 L Swisher # (Auto) 0.2 Eos # (Auto) 1.4 H Baso # (Auto) 0.0 Immature Gran # (Auto) 0.35 H Absolute Nucleated RBC 0.00 Immature Gran % 6 H Nucleated RBC % 0 ESR 94 H D-Dimer > 3820 H Sodium 133 L Potassium 4.7 Chloride 102 Carbon Dioxide 19.8 L Anion Gap 11 BUN 67 H Creatinine 2.4 H D Estim Creat Clear Calc 22.4 L eGFR 21 L BUN/Creatinine Ratio 28 H Glucose 111 H Calculated Osmolality 286 Lactic Acid 2.1 H Calcium 8.6 Corrected Calcium 9.2 Magnesium 1.6 Total Bilirubin 0.6 AST 84 H ALT 49 Alkaline Phosphatase 114 Troponin I 12.022 H* 17.757 H* D C-Reactive Prot, Quant 32.9 H B-Natriuretic Peptide 1713 H* Total Protein 5.1 L Albumin 3.3 L Globulin 1.8 L Albumin/Globulin Ratio 1.8 Amylase 25 L Lipase 16 Procalcitonin 19.16 H TSH 19.01 H Ur Collection Type Clean Catch Urine Color [facility] A Urine Clarity Cloudy A Urine pH 6.5 Ur Specific [place] 1.023 Urine Protein 2+ A Urine Glucose (UA) Negative Urine Ketones Trace Urine Blood 3+ A Urine Nitrite Negative Urine Bilirubin Negative Urine Urobilinogen (Auto) 2.0 Ur Leukocyte Esterase Positive Urine RBC 1185 H Urine WBC 817 H Ur Squamous Epith Cells 6 H Ur Transition Epith Cell 8 H Amorphous Crystals Present A Urine Bacteria 4+ A Misc Test Result Platelets confirmed Quality Measures Quality Measures comfort care/end of life Advance care planning discussed with:: child Assessment & Plan Assessment Current Active Medications: Generic Name Dose Route Start Last Admin Trade Name Freq PRN Reason Stop Dose Admin Morphine Sulfate 100 mg/ 100 mls @ 3 mls/hr 02/22/24 15:14 02/22/24 15:39 Sodium Chloride IV 03/23/24 05:56 3 mg/hr .Q24H PRN 3 mls/hr PAIN (COMFORT CARE) Administration Protocol 3 MG/HR Lorazepam 1 mg 02/22/24 05:57 Lorazepam 2 Mg/Ml Vial IVP 02/27/24 05:56 Q6HR PRN ANXIETY Morphine Sulfate 2 mg 02/22/24 05:57 02/22/24 06:30 Morphine Sulf Inj 10 Mg/Ml Vial IVP 02/27/24 05:56 2 mg Q30M PRN Administration PAIN Ondansetron HCl 4 mg 02/22/24 06:00 02/22/24 07:48 Ondansetron Odt 4 Mg Tabrap PO 03/23/24 05:59 Not Given Q6HR VAIBHAV Scopolamine 1 mg 02/22/24 06:00 02/22/24 07:49 Scopolamine 1 Mg Tdsy TOP 03/23/24 05:59 1 mg Q3D VAIBHAV Administration Plan Assessment: #Comfort measures #Possible myocardial infarction #Shock-likely cardiogenic #Elevated troponin #Acute kidney injury #Lactic acidosis #HFrEF #Type 2 diabetes #History infective endocarditis status post valve replacement x 2 -continue comfort measures protocol -Morphine drip -Morphine as needed -Ativan as needed Patient's care was discussed with my attending physician, Dr. Anguiano and senior Dr. Ruff. Yasmine Chirinos, PGY-1 Attending Provider Attestation/Addendum I have discussed and was present for the essential components of the history, physical examination, diagnosis, and treatment plan with the resident. I agree with the patient's care as documented by the resident and amended herein by me. Dada Anguiano, DO. Patient seen and evaluated this AM. Patient presently on comfort measures, case discussed with son, morphine drip started. Although this document has been carefully reviewed, there may still be some phonetic and other typographical errors. These errors are purely grammatical due to imperfections in the software program and should not be construed in any way to compromise the substance of the patient's medical care during this visit.
--- NOTE | 2024-02-22 18:43 | PC.NURSE ---
Walked into patient's room at 1837 noticed patient was not breathing. Auscultated for pulse and heart rate with stethoscope, unable to locate. Notified Dr Poe. Dr Chirinos at bedside at 184. Patient was pronounced at [address] called son Darnell to notify him of .
--- NOTE | 2024-02-22 18:58 | PC.NURSE ---
I contacted the donor network at 1858. Informed them patient today 02/22/2024 at 1846. I talked to Merari Lewis, she gave me OPA# [id number]. Merari said patient was not a candidate to be a donor.
--- NOTE | 2024-02-22 19:07 | PD.DDS ---
Documentation for date of: 02/22/24 Summary Date and Time Date of admission: 02/22/24 05:57 Date of : 02/22/24 Time of : 18:46 Summary Details: RUBA Rodriguez 1955 Time of : 02/22/24 at 6:46 PM Attending: Dr. Geo Anguiano DO Cause of : Cardiogenic shock Patient had PMH of A-fib with RVR, COPD, old stroke, aortic stenosis s/p valve replacement 2 years ago and has a history of infective endocarditis with replacement of valve earlier this year in [place] who had initially presented to ED on 02/22/2024 at 6 AM due to body aches and chest pain. Patient's mental status was altered and somnolent with response to only painful stimuli. Her son Darnell was at bedside. Patient had recently been discharged on 02/21/2024 due to similar symptoms but at that time had signed a DNR form stating that she did not want any aggressive medical management. At this admission, she presented with hypotension 73/74 with MAP of 49 requiring Levophed. Family was contacted and attempt was made to transfer patient to [facility]. However [facility] declined due to PMH comorbidities. Patient's son was informed of his mother's condition requiring pressors and possibly the need for a cardiac catheterization. Son was aware of patient's critical and poor prognosis. Due to DNR status and wish to avoid invasive procedures, the family decided to start comfort care measures. Morphine drip was started. At 6:40 PM on 02/22/24, nurse called primary care team stating that patient had . Patient was seen and examined at the bedside, no pulses could be felt, no cardiac sounds were heard after 1 continuous minute of auscultation, no response to painful stimuli, no breath sounds heard, and pupils were fixed and dilated. Time of pronounced at 6:46 pm. Nurse was at bedside. Patient's son was contacted and condolences were given. He later arrived at beside. Additional Data Attending physician: Geo Anguiano DO Visit Providers Provider Primary care physician: Shun Thomson MD Consults: 02/22/24 05:30 Consult to Cardiology Stat Comment: Consulting Provider: Anumandla,Chris Cao Instructions: Acute AR Discharge Plan Plan Patient Disposition: Prescriptions/Referrals Referrals: Shun Thomson MD [Primary Care Provider] - Patient/Caregiver Discharge Instructions Print Language: [place] Discharge Order Discharge Orders: Discharge (Routine); Ordered 02/22/24 Ordered By: Brigid Ingram
--- NOTE | 2024-02-22 19:07 | PD.DPN ---
Documentation for date of: 02/22/24 Pronouncement Note Date and Time of Date of : 02/22/24 Time of : 18:46 PCOD Preliminary cause of : Cardiogenic shock Summary Additional details: Received call from nurse at 6:40 pm stating patient had . Patient was seen and examined at the bedside, no pulses could be felt, no cardiac sounds were heard after 1 continuous minute of auscultation, no response to painful stimuli, no breath sounds heard, and pupils were fixed and dilated. Time of pronounced at 6:46 pm. Nurse was at bedside. Patient's son was contacted and condolences were given. He later arrived at beside. Additional Data Confirmation of : no pulse, no respirations, no heart sounds and pupils fixed and dilated Family: contacted Additional persons at bedside: other Attending/PCP notified?: Yes Attending physician: Geo Anguiano, DO
--- NOTE | 2024-02-22 23:59 | PC.NURSE ---
Morphine administered 4.5ml, wasted rest of Morphine in IV tubing and ba.5ml.
== END 2024-02-22 18:46 | disposition expired ==
LOC: SERX 06:12 → SERHOLD 06:22 → S3NX 14:03
PROVIDERS: Admitting Provider Student in an Organized Health Care Education/Training Program; Emergency Provider Emergency Medicine; PCP Internal Medicine; Visit Provider Student in an Organized Health Care Education/Training Program
DX: I21.3 ST elevation (STEMI) myocardial infarction of unspecified site (principal); E87.20 Acidosis, unspecified; N17.9 Acute kidney failure, unspecified; I50.22 Chronic systolic (congestive) heart failure; R57.0 Cardiogenic shock; J44.9 Chronic obstructive pulmonary disease, unspecified; E11.9 Type 2 diabetes mellitus without complications; I35.0 Nonrheumatic aortic (valve) stenosis; I45.10 Unspecified right bundle-branch block; I48.0 Paroxysmal atrial fibrillation; Z66 Do not resuscitate; Z86.73 Personal history of transient ischemic attack (TIA), and cerebral infarction without residual deficits; Z51.5 Encounter for palliative care; Z86.79 Personal history of other diseases of the circulatory system; Z95.2 Presence of prosthetic heart valve
CPT/HCPCS: 36415; 36600; 70450; 71045; 71250; 74176; 80053; 81001; 82150; 82803; 83605; 83615; 83690; 83735; 83880; 84145; 84443; 84484; 85025; 85379; 85610; 85652; 85730; 86140; 87040; 87081; 87086; 87186; 87400; 87634; 87811; 96374; 96375; 96376; 99284; 99291; J2060; J2270; J2405; J3490; J7030; J7050; A9270